=== PATIENT | male | born 1970 | race Caucasian/White ===

== ENCOUNTER 2023-03-02 18:05 | Emergency (ER) | payer OTHER, SELFPAY ==
[2023-03-02 18:12] VITALS: BP 160/90; PULSE 95; RESP 20; TEMP 36.9; O2SAT 98; BMI 22.2
[2023-03-02 18:40] LABS: Basophils Absolute Auto 0.1 10^3/uL (0.0-0.1); Basophils Percent Auto 0.7 % (0.2-2.0); Eosinophils Absolute Auto 0.1 10^3/uL (0.0-0.7); Hematocrit 41.8 % (42.0-54.0); Hemoglobin 13.3 g/dL (14.0-18.0); Immature Granulocytes Abs Auto 0.03 10^3/uL (0.00-0.03); Immature Granulocytes Pct Auto 0.2 % (0.0-0.5); Lymphocytes Absolute Auto 1.5 10^3/uL (1.2-3.8); Lymphocytes Percent Auto 11.8 % (20.5-60.0); Mean Corpuscular HGB Conc 31.8 g/dL (29.9-35.2); Mean Corpuscular Hemoglobin 29.2 pg (25.9-34.0); Mean Corpuscular Volume 91.9 fL (80.0-94.0); Mean Platelet Volume 10.5 fL (9.5-13.5); Monocytes Absolute Auto 0.6 10^3/uL (0.3-0.8); Monocytes Percent Auto 4.7 % (1.7-12.0); Neutrophils Absolute Auto 10.3 10^3/uL (1.4-6.5); Neutrophils Percent Auto 81.6 % (43.0-75.0); Platelet Count 266 10^3/uL (150-450); Red Blood Count 4.55 10^6/uL (4.70-6.10); Red Cell Distribution Width 12.2 % (11.0-15.0); White Blood Count 12.6 10^3/uL (4.0-11.0)
--- NOTE | 2023-03-02 18:43 | ECG_ITS ---
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
--- NOTE | 2023-03-02 18:45 | ED_ITS ---
HPI - General Adult General Chief complaint: Nausea/Vomiting/Diarrhea Stated complaint: Flu Like Symptoms Time Seen by Provider: 03/02/23 18:28 Source: patient Mode of arrival: walk-in Limitations: no limitations History of Present Illness HPI narrative: Patient is a 52-year-old male with a history of acid reflux, ulcers and gastroparesis who presents to the ER for a 1 day history of nausea and vomiting. He states he does have some diarrhea but has had significantly more vomiting today. He denies fevers, chills. He has minimal cough. He reports pain in the epigastrium. No medications taken prior to arrival. No sick contacts. He denies any urinary symptoms. Related Data Previous Rx's Medication Instructions Recorded dicyclomine 20 mg tablet 20 mg PO QID PRN abdominal pain 03/02/23 #12 tabs ondansetron 4 mg disintegrating 4 mg PO Q6H PRN nausea and 03/02/23 tablet vomiting #12 tabs pantoprazole 40 mg tablet,delayed 40 mg PO DAILY #7 tabs 03/02/23 release (Protonix) promethazine 25 mg tablet 25 mg PO Q6H PRN nausea and 03/02/23 vomiting #12 tabs Allergies Allergy/AdvReac Type Severity Reaction Status Date / Time No Known Drug Allergies Allergy Verified 03/02/23 18:14 Review of Systems ROS Constitutional Reports: chills; Denies: fever Ears, nose, mouth, and throat Denies: throat pain or nasal congestion Cardiovascular Denies: chest pain Respiratory Reports: cough; Denies: shortness of breath Gastrointestinal Reports: abdominal pain, nausea, vomiting and diarrhea Musculoskeletal Denies: back pain Integumentary/Breast Denies: rash Neurological Denies: headache Hematologic/Lymphatic Denies: easy bruising [facility] Social History Smoking status: Former smoker Exam Narrative Exam Narrative: Gen.: Awake, alert, in no distress Head: Normocephalic, atraumatic ENT: Moist mucous membranes Respiratory: No respiratory distress, lungs clear bilaterally Cardio: Regular rate and rhythm Gastrointestinal: Abdomen is soft, nondistended and tender in the epigastrium with no guarding or rebound Extremities: Moves extremities equally Psych: Normal mood and affect Neuro: No focal neuro deficit Skin: Warm, dry, intact Constitutional Vital Signs, click to edit/add: Last Vital Signs Temp 98.5 F 03/02/23 18:12 Pulse 95 H 03/02/23 18:12 Resp 20 03/02/23 18:12 BP 160/90 H 03/02/23 18:12 Pulse Ox 98 03/02/23 18:12 Course Vital Signs Vital signs: Vital Signs Temperature 98.5 F 03/02/23 18:12 Pulse Rate 95 H 03/02/23 18:12 Respiratory Rate 20 03/02/23 18:12 Blood Pressure 160/90 H 03/02/23 18:12 Pulse Oximetry 98 03/02/23 18:12 Temperature 98.5 F 03/02/23 18:12 Pulse Rate 95 H 03/02/23 18:12 Respiratory Rate 20 03/02/23 18:12 Blood Pressure 160/90 H 03/02/23 18:12 Pulse Oximetry 98 03/02/23 18:12 Medical Decision Making MDM Narrative Medical decision making narrative: Patient treated with IV fluids, Reglan, Benadryl, Protonix, Levsin. He did have improvement but had another episode of emesis on the way back from x-ray. His lab studies show minimal leukocytosis with no other acute abnormalities. X-rays show constipation with no other evidence of obstruction. Patient will be discharged home with Phenergan, Bentyl, Protonix. Follow-up with PCP. Vital signs unremarkable and abdomen is soft and benign in the ER. Return to the ER if symptoms change or worsen. Patient tolerated ice chips with no difficulty in the ER. He is resting comfortably on reevaluation. Medical Records Medical records reviewed: Yes I reviewed the patient's medical records Lab Data Lab results reviewed: Yes I reviewed the patient's lab results Labs: Lab Results 03/02/23 03/02/23 Range/Units 18:30 20:55 WBC 12.6 H (4.0-11.0) 10^3/uL RBC 4.55 L (4.70-6.10) 10^6/uL Hgb 13.3 L (14.0-18.0) g/dL Hct 41.8 L (42.0-54.0) % MCV 91.9 (80.0-94.0) fL MCH 29.2 (25.9-34.0) pg MCHC 31.8 (29.9-35.2) g/dL RDW 12.2 (11.0-15.0) % Plt Count 266 (150-450) 10^3/uL MPV 10.5 (9.5-13.5) fL Neut % (Auto) 81.6 H (43.0-75.0) % Lymph % (Auto) 11.8 L (20.5-60.0) % [place] % (Auto) 4.7 (1.7-12.0) % Eos % (Auto) 1.0 (0.9-7.0) % Baso % (Auto) 0.7 (0.2-2.0) % Neut # (Auto) 10.3 H (1.4-6.5) 10^3/uL Lymph # (Auto) 1.5 (1.2-3.8) 10^3/uL [place] # (Auto) 0.6 (0.3-0.8) 10^3/uL Eos # (Auto) 0.1 (0.0-0.7) 10^3/uL Baso # (Auto) 0.1 (0.0-0.1) 10^3/uL Abs Immat Gran (auto) 0.03 (0.00-0.03) 10^3/uL Imm/Tot Granulo (auto) 0.2 (0.0-0.5) % Sodium 137 (136-145) mmol/L Potassium 4.2 (3.5-5.1) mmol/L Chloride 99 (98-107) mmol/L Carbon Dioxide 31.0 (21.0-32.0) mmol/L Anion Gap 11.2 BUN 13.0 (7.0-18.0) mg/dL Creatinine 0.90 (0.70-1.30) mg/dL Est GFR ( Amer) >60 (>=60) Est GFR (Non-Af Amer) >60 (>=60) BUN/Creatinine Ratio 14.4 Glucose 227 H (74-106) mg/dL Lactate 2.8 H* 1.6 (0.4-2.0) mmol/L Calcium 9.3 (8.5-10.1) mg/dL Total Bilirubin 0.4 (0.2-1.0) mg/dL AST 13 L (15-37) U/L ALT 17 (16-63) U/L Alkaline Phosphatase 115 (46-116) U/L Troponin I High Sens 6.2 (4.0-76.1) pg/mL Total Protein 8.2 (6.4-8.2) g/dL Albumin 4.0 (3.4-5.0) g/dL Globulin 4.2 g/dL Albumin/Globulin Ratio 1.0 Lipase 43.0 (16.0-77.0) U/L Imaging Data Abdominal x-ray: Attestation: I have reviewed the pertinent imaging results. Radiologist's impression: Procedure: XR acute abdomen series EXAM: XR acute abdomen series HISTORY: vomiting and diarrhea COMPARISON: None. TECHNIQUE: Frontal view of the chest as well as upright and supine views of the abdomen FINDINGS: The heart size is normal. No dense focal consolidation, pneumothorax or pleural effusion is seen. Nonspecific bowel gas pattern is seen. No air-filled distended loops of bowel is seen to suggest bowel obstruction. Large volume of stool is seen throughout the colon. No gross pneumoperitoneum is seen. No obvious pathologic effusion is seen. The visualized osseous structures appear unremarkable. IMPRESSION: Large volume of stool seen throughout the colon. Electronically authenticated by: AFSANEH SIMMS Date: 03/02/2023 21:30 ECG Data Attestation: I personally reviewed and interpreted this ECG as follows: (Normal sinus rhythm, no acute ST elevation or ectopy. EKG reviewed by attending physician) Discharge Plan Discharge Chief Complaint: Nausea/Vomiting/Diarrhea Clinical Impression: Nausea vomiting and diarrhea, Abdominal pain Patient Disposition: Home, Self-Care Time of Disposition Decision: 21:58 Condition: Good Prescriptions / Home Meds: New dicyclomine 20 mg tablet 20 mg PO QID PRN (Reason: abdominal pain) Qty: 12 0RF pantoprazole [Protonix] 40 mg tablet,delayed release (DR/EC) 40 mg PO DAILY Qty: 7 0RF ondansetron 4 mg tablet,disintegrating 4 mg PO Q6H PRN (Reason: nausea and vomiting) Qty: 12 0RF promethazine 25 mg tablet 25 mg PO Q6H PRN (Reason: nausea and vomiting) Qty: 12 0RF Instructions: Acute Nausea and Vomiting (ED), Acute Diarrhea (ED), Abdominal Pain (ED) Stand Alone Forms: Portal Instructions Referrals: Physician,Non-Staff, MD [Primary Care Provider] - 1 week Discharge Date/Time: 03/02/23 23:26
[2023-03-02 18:53] LABS: Alanine Aminotransferase 17 U/L (16-63); Alkaline Phosphatase 115 U/L (46-116); Anion Gap 11.2; Aspartate Amino Transferase 13 U/L (15-37); BUN Creatinine Ratio 14.4; Bilirubin Total 0.4 mg/dL (0.2-1.0); Calcium 9.3 mg/dL (8.5-10.1); Chloride 99 mmol/L (98-107); Estimated GFR (African America >60 (>=60); Estimated GFR (Non-African Ame >60 (>=60); Globulin 4.2 g/dL; Glucose 227 mg/dL (74-106); Potassium 4.2 mmol/L (3.5-5.1); Sodium 137 mmol/L (136-145); Total Protein 8.2 g/dL (6.4-8.2)
[2023-03-02 18:59] LABS: Lactate/Lactic Acid 2.8 mmol/L (0.4-2.0)
[2023-03-02 19:01] LABS: Troponin I High Sensitivity 6.2 pg/mL (4.0-76.1)
[2023-03-02] MEDS: METOCLOPRAMIDE HCL 10 MG/2 ML VIAL INJ (19:34)
[2023-03-02] MEDS: PANTOPRAZOLE SODIUM 40 MG VIAL IV (19:34)
[2023-03-02] MEDS: 0.9 % SODIUM CHLORIDE 1,000 ML 999 ML IV (19:34)
[2023-03-02] MEDS: DIPHENHYDRAMINE HCL 50 MG/ML (1ML) VIAL 25 MG IV (19:34)
[2023-03-02] MEDS: HYOSCYAMINE SULFATE 0.125 MG TAB.SUBL SL (19:39)
--- NOTE | 2023-03-02 20:19 | XR_ITS ---
The [address] [address] Patient Name: ISIAH PECK MRN: [id number] date: 1970 Sex: M Assigned Patient Location: ER Current Patient Location: ED.MAIN Accession/Order Number: [id number] Exam Date: 03/02/2023 20:25 Report Date: 03/02/2023 21:30 At the request of: JORJE ODOM Procedure: XR acute abdomen series EXAM: XR acute abdomen series HISTORY: vomiting and diarrhea COMPARISON: None. TECHNIQUE: Frontal view of the chest as well as upright and supine views of the abdomen FINDINGS: The heart size is normal. No dense focal consolidation, pneumothorax or pleural effusion is seen. Nonspecific bowel gas pattern is seen. No air-filled distended loops of bowel is seen to suggest bowel obstruction. Large volume of stool is seen throughout the colon. No gross pneumoperitoneum is seen. No obvious pathologic effusion is seen. The visualized osseous structures appear unremarkable. XR/XR acute abdomen series IMPRESSION: Large volume of stool seen throughout the colon. Electronically authenticated by: AFSANEH SIMMS Date: 03/02/2023 21:30
[2023-03-02] MEDS: PROMETHAZINE HCL 25 MG/ML VIAL 12.5 MG IV (20:50)
[2023-03-02 21:27] LABS: Lactate/Lactic Acid 1.6 mmol/L (0.4-2.0)
== END 2023-03-02 23:26 | disposition home or self-care (01) ==
PROVIDERS: Physician Assistant; Emergency Provider Internal Medicine
DX: R11.2 Nausea with vomiting, unspecified (principal); R19.7 Diarrhea, unspecified; R10.9 Unspecified abdominal pain; Z87.891 Personal history of nicotine dependence; Z87.898 Personal history of other specified conditions
CPT/HCPCS: 36415; 74022; 80053; 83605; 83690; 84484; 85025; 93005; 96374; 96375; 99285